=== PATIENT | male | born 1990 | race Caucasian/White ===

== ENCOUNTER 2019-05-12 06:26 | Emergency (ER) | payer BC ==
[~2019-05-12] VITALS: Ht 182.9 cm; Wt 67.6 kg
[2019-05-12 06:26] VITALS: BP 138/92
[2019-05-12] MEDS ORDERED: CLOR7.5T43 PO (06:46)
--- NOTE | 2019-05-12 06:46 | PHYS DOC ---
Adult General Chief Complaint Chief Complaint: ANXIETY/PANIC ATTACK HPI HPI Patient is a 28-year-old male who presents with complaint of panic attack. Patient states that he had recently had a panic attack that lasted for 4 days and was just recently prescribed new medication for his anxiety. Patient states that he started to have a panic attack again and took his medication but symptoms were not improving. He states that upon arrival now, his symptoms have almost completely resolved. He denies any chest pain or shortness of breath. He does indicate that he was feeling short of breath earlier during the panic episode.[] Review of Systems Review of Systems Constitutional: Denies fever or chills [] Respiratory: Denies cough or shortness of breath [] Cardiovascular: No additional information not addressed in HPI [] Integument: Denies rash or skin lesions [] Neurologic: Denies headache, focal weakness or sensory changes [] Physical Exam Physical Exam Constitutional: Well developed, well nourished, no acute distress, non-toxic appearance. [] Cardiovascular:Heart rate regular rhythm, no murmur [] Lungs & Thorax: Bilateral breath sounds clear to auscultation [] Extremities: No tenderness, no cyanosis, no clubbing, ROM intact, no edema. [] Neurologic: Alert and oriented X 3, no focal deficits noted. [] EKG EKG [] Radiology/Procedures Radiology/Procedures [] Course & Med Decision Making Course & Med Decision Making Pertinent Labs and Imaging studies reviewed. (See chart for details) [] Dragon Disclaimer Dragon Disclaimer This electronic medical record was generated, in whole or in part, using a voice recognition dictation system. Departure Departure: Impression: Primary Impression: Panic attacks Disposition: 01 HOME, SELF-CARE Condition: STABLE Referrals: NICOLE MEJIA APRN (PCP) Patient Instructions: Anxiety and Panic Attacks Scripts Clorazepate Dipotassium (TRANXENE T-TAB) 7.5 Mg Tablet 1 TAB PO BID PRN for ANXIETY MDD 2 Tablet(s), #14 TAB 0 Refills Prov: CRISTIAN PETERS Jr. DO 05/12/19 CRISTIAN PETERS Jr. DO May 12, 2019 06:46
== END 2019-05-12 06:53 | disposition home or self-care (01) ==
LOC: ER 06:26
DX: F41.0 Panic disorder [episodic paroxysmal anxiety] (principal)
CPT/HCPCS: 99283

== ENCOUNTER 2019-05-14 07:32 | Emergency (ER) | payer BC ==
[~2019-05-14] VITALS: Ht 182.9 cm; Wt 68.0 kg
[~2019-05-14 07:32] MED LIST: CLOR7.5T43 PO
[2019-05-14 07:40] VITALS: BP 143/86
--- NOTE | 2019-05-14 08:09 | PHYS DOC ---
Past History Past Medical History: Anxiety Past Surgical History: Hip Replacement Additional Past Surgical Histo: Hip replacement Smoking: Cigarettes Alcohol Use: None Drug Use: None Adult General Chief Complaint Chief Complaint: DIARRHEA HPI HPI 28-year-old male presents with one-day history of nausea and vomiting and generalized malaise that started yesterday. Patient reports THIS morning with a fever Tmax 101. Patient does report now with some diarrhea. Patient reports that nausea vomiting has improved but still having some abdominal discomfort. Denies known sick contacts. Denies travel outside [facility]. Review of Systems Review of Systems Constitutional: Denies fever or chills Eyes: Denies redness or eye pain HENT: Denies nasal congestion or sore throat Respiratory: Denies cough or shortness of breath Cardiovascular: Denies chest pain or palpitations GI: Reports abdominal discomfort, nausea and vomiting, and diarrhea : Denies dysuria or hematuria Musculoskeletal: Denies back pain or joint pain Integument: Denies rash or skin lesions Neurologic: Denies headache, focal weakness or sensory changes Complete systems were reviewed and found to be within normal limits, except as documented in this note. Allergies Allergies Allergies Coded Allergies Type Severity Reaction Last Updated Verified No Known Drug Intolerances Allergy Unknown 05/14/19 Yes Physical Exam Physical Exam Constitutional: Well developed, well nourished, no acute distress, non-toxic appearance HENT: Normocephalic, atraumatic, oropharynx moist Eyes: Conjunctiva normal, no discharge Neck: Normal range of motion, no tenderness, supple Cardiovascular: Heart rate normal, regular rhythm Lungs & Thorax: Bilateral breath sounds clear to auscultation, no wheezing Abdomen: Soft, no tenderness, no guarding/rebound tenderness/distention Skin: Warm, dry, no erythema, no rash Extremities: No tenderness, ROM intact, no edema Neurologic: Alert and oriented X 3, no focal deficits noted Psychologic: Affect normal, judgment normal Current Patient Data Vital Signs Vital Signs Date Time Temp Pulse Resp B/P (MAP) Pulse Ox O2 Delivery O2 Flow Rate FiO2 05/14/19 07:40 98.4 98 16 143/86 (105) 97 Room Air EKG EKG [] Radiology/Procedures Radiology/Procedures [] Course & Med Decision Making Course & Med Decision Making Patient presents with history of present illness and physical exam consistent for viral gastroenteritis. Abdomen non-peritoneal. Patient reports nausea and vomiting has since resolved. Reports history of fever. Afebrile upon presentation. Patient still with good moisture on tongue. Advised to increase fluid hydration. Advised to use [id number] ibuprofen or Tylenol for any pain or discomfort. Patient stable for discharge with outpatient follow-up with PCP. Discussed findings and plan with patient, who acknowledges understanding and agreement. Dragon Disclaimer Dragon Disclaimer This electronic medical record was generated, in whole or in part, using a voice recognition dictation system. Departure Departure: Impression: Primary Impression: Nausea vomiting and diarrhea Additional Impression: Hx of fever Disposition: 01 HOME, SELF-CARE Condition: STABLE Referrals: NICOLE MEJIA APRN (PCP) CELIA SAN MD Patient Instructions: Diarrhea, [id number], Diet for Diarrhea, Adult, Nausea and Vomiting, [id number] Additional Instructions: Increase fluid hydration. Stay away from heavy creams and spicy food. Stick to a bland diet. Increase in foods that will naturally form stool together (BRAT diet: bananas, rice applesauce, toast). Use over the counter Tylenol and Ibuprofen for pain or discomfort. Problem Qualifiers MYRNA DAVIS DO May 14, 2019 08:09
== END 2019-05-14 08:13 | disposition home or self-care (01) ==
LOC: ER 07:32
DX: R11.2 Nausea with vomiting, unspecified (principal); R19.7 Diarrhea, unspecified; R53.81 Other malaise; F17.210 Nicotine dependence, cigarettes, uncomplicated
CPT/HCPCS: 99281